=== PATIENT | male | born 1985 | race Caucasian/White ===

== ENCOUNTER → 2020-03-25 11:15 | Outpatient (BNVA) | payer OTHER, SELFPAY | PROVIDERS: Visit Provider Nurse Practitioner Family | DX: R31.9 Hematuria, unspecified (principal); Z72.51 High risk heterosexual behavior; R35.0 Frequency of micturition; Z11.3 Encounter for screening for infections with a predominantly sexual mode of transmission; L29.3 Anogenital pruritus, unspecified | CPT/HCPCS: 80053; 81000; 87491; 87591; 87661 ==

== ENCOUNTER → 2020-04-06 09:37 | Outpatient (BNVA) | payer OTHER, SELFPAY | PROVIDERS: Visit Provider Nurse Practitioner Family | DX: A64 Unspecified sexually transmitted disease (principal); Z72.51 High risk heterosexual behavior; Z20.2 Contact with and (suspected) exposure to infections with a predominantly sexual mode of transmission | CPT/HCPCS: 80074; 87491; 87806 ==

== ENCOUNTER → 2020-04-14 16:41 | Outpatient (BNVA) | payer OTHER, SELFPAY | PROVIDERS: Visit Provider Nurse Practitioner Family | DX: A74.9 Chlamydial infection, unspecified (principal) | CPT/HCPCS: 87491 ==

== ENCOUNTER → 2020-05-13 14:25 | Outpatient (BNVA) | payer OTHER, SELFPAY | PROVIDERS: Visit Provider Nurse Practitioner Family | DX: A64 Unspecified sexually transmitted disease (principal); Z20.2 Contact with and (suspected) exposure to infections with a predominantly sexual mode of transmission | CPT/HCPCS: 87491; 87591 ==

== ENCOUNTER 2020-05-25 08:23 | Emergency (ER) | payer OTHER, SELFPAY ==
[2020-05-25 08:37] VITALS: BP 147/80; PULSE 94; RESP 16; TEMP 36.8; O2SAT 100; BMI 25.0
[2020-05-25 08:43] VITALS: BP 147/80; PULSE 89; RESP 16; TEMP 36.9; O2SAT 100
[2020-05-25 08:50] LABS: Add Urine Microscopic? NO
[2020-05-25 08:53] LABS: Bilirubin Urine Neg (Negative); Blood Urine Neg (Negative); Glucose Urine UA Norm (Normal); Ketones Urine 1+ (Negative); Leukocyte Esterase Urine Negative (Negative); Nitrate Urine Negative (Negative); Protein Urine Neg (Negative); Specific Gravity, Urine 1.025 (1.005-1.030); Urine Appearance Clear (CLEAR); Urine Color Yellow (Yellow); Urobilinogen Urine Norm (Negative)
--- NOTE | 2020-05-25 09:02 | W.ED.MALEGU ---
HPI - Male Genitourinary General: Chief complaint: Urogenital-Male Stated complaint: KIDNEY PAIN Time Seen by Provider: 05/25/20 08:41 History of Present Illness: HPI Narrative: 35-year-old male presents to the emergency room with a complaint of flank pain bilaterally as well as dysuria urgency and frequency. He has not seen any gross hematuria. Months ago he was treated for chlamydia he initially was given Zithromax had some difficulty with that and was changed to a secondary medications he thinks it was ciprofloxacin. He took that for a week he said after that he started some getting some burning and pressure sensation around the genitals on the perineal area. Now over the last few days he started getting bilateral flank pain he is not noticed any gross hematuria he denies any history of kidney stones he has continued to have some dysuria. MD Complaint: dysuria and possible STD exposure Onset (ago): month(s) Duration: constant Associated symptoms: Deny dysuria, nausea or vomiting Review of Systems Const: Denies: fever(s), chills, body aches, change in appetite, fatigue or malaise ENMT: Denies: throat pain, ear or mastoid pain, nasal discharge or nasal congestion Card: Denies: chest pain, edema, dyspnea on exertion or orthopnea Resp: Denies: dyspnea, productive cough or non-productive cough GI: Denies: abdominal pain, nausea, vomiting, hematemesis, coffee ground emesis, diarrhea, constipation, bloating, hematochezia or melena : Denies: flank pain, dysuria, urinary frequency or urinary urgency Skin/Breast: Denies: rash or pruritus PFSH ED PFSH: Social History Smoking and tobacco status: current every day smoker cigarettes and smokeless tobacco Physical Exam Const: COMMON NORMALS: no acute distress GENERAL APPEARANCE: cooperative and comfortable ORIENTATION/CONSCIOUSNESS: Yes awake, Yes oriented to person, Yes oriented to place and Yes oriented to time HENMT: COMMON NORMALS: normocephalic, atraumatic, hearing grossly normal bilaterally, external ears normal, EAC's normal, TM's normal bilaterally, Normal nasal mucous membranes and turbinates present, moist oral mucous membranes and oropharynx normal HEAD & SCALP: normocephalic and atraumatic NOSE: Normal nasal mucous membranes and turbinates present EXTERNAL EAR: Yes external ears normal EXTERNAL AUDITORY CANAL: EAC's normal TYMPANIC MEMBRANE: TM's normal bilaterally Eye: COMMON NORMALS: Equal, round and reactive pupils present, EOMs intact bilaterally, conjunctivae normal and no scleral icterus CONJUNCTIVA: Yes conjunctivae normal PUPIL: Yes Equal, round and reactive pupils present Neck/C-Spine: COMMON NORMALS: full ROM, no lymphadenopathy, supple and no JVD Lymph: LYMPHATIC: no lymphadenopathy noted and no lymphedema noted Resp: COMMON NORMALS: normal respiratory effort, No retractions, No use of accessory muscles and clear to auscultation bilaterally AUSCULTATION: clear to auscultation bilaterally Cardio: COMMON NORMALS: no JVD, regular rate, regular rhythm and No murmurs present (Cardio) RATE: regular rate RHYTHM: regular rhythm GI: COMMON NORMALS: Soft to palpation and No hepatosplenomegaly present AUSCULTATION: Yes normoactive bowel sounds PALPATION: Yes Soft to palpation, No Tenderness to palpation present (GI), No Guarding due to palpation present (GI) and Yes No hepatosplenomegaly present Extremity: COMMON NORMALS: normal to inspection, capillary refill normal, no clubbing, cyanosis or edema, no calf tenderness and no pedal edema Neuro: SENSORIUM/ORIENTATION: Yes oriented to person, Yes oriented to place and Yes oriented to time Skin: COMMON NORMALS: no rashes or lesions noted GENERAL SKIN EXAM: no rashes or lesions noted Course Vital Signs: Vital signs: Vital Signs Temperature 98.4 F 05/25/20 08:43 Pulse Rate 79 05/25/20 10:51 Respiratory Rate 18 05/25/20 10:51 Blood Pressure 111/58 05/25/20 10:51 Pulse Oximetry 98 05/25/20 10:51 MDM - Male MDM Narrative: Medical decision making narrative: GC and Chlamydia are pending wet mount pending. We will go and discharge home suspect patient is more musculoskeletal back pain. Reviewed findings with him. Lab Data: Labs: Lab Results 05/25/20 05/25/20 05/25/20 Range/Units 08:34 09:03 09:03 WBC 4.6 (4.0-10.0) 10^3/ uL RBC 5.02 (4.1-5.3) 10^6/u L Hgb 16.3 (11.7-16.6) g/dL Hct 47.5 (42.0-52.0) % MCV 94.6 H (80-94) fL MCH 32.5 (28.0-34.0) pg MCHC 34.3 (30.0-36.0) g/dL RDW 12.1 (12.1-15.1) % Plt Count 260 (130-400) 10^3/c mm MPV 9.1 (7.4-10.4) fL Neut % (Auto) 53.9 % Lymph % (Auto) 33.6 % [place] % (Auto) 8.0 % Eos % (Auto) 3.4 % Baso % (Auto) 0.9 % Neut # (Auto) 2.50 (1.8-7.7) 10^3/u L Lymph # (Auto) 1.6 (0.8-4.8) 10^3/u L [place] # (Auto) 0.4 (0.2-0.9) 10^3/u L Eos # (Auto) 0.2 (0.0-0.8) 10^3/u L Baso # (Auto) 0.0 (0.0-0.1) 10^3/u L Nucleated RBC % (a uto) 0 % Nucleated RBCs # 0.0 /100WBC Sodium 142 (136-145) mmol/L Potassium 3.8 (3.5-5.1) mmol/L Chloride 105 (98-107) mmol/L Carbon Dioxide 26 (22-29) mmol/L Anion Gap 14.8 (5-19) BUN 22 H (6-20) mg/dL Creatinine 1.1 (0.7-1.2) mg/dL GFR Calculation 77.1 L (90-130) mL/min Glucose 119 H (65-115) mg/dL Calculated Osmolal ity 298 H (285-295) mOsm/k g Calcium 9.5 (8.5-10.5) mg/dL Urine Color Yellow (Yellow) Urine Appearance Clear (CLEAR) Urine pH 5.0 (5-7) Ur Specific Gravit y 1.025 (1.005-1.030) Urine Protein Neg (Negative) Urine Glucose (UA) Norm (Normal) Urine Ketones 1+ H (Negative) Urine Blood Neg (Negative) Urine Nitrate Negative (Negative) Urine Bilirubin Neg (Negative) Urine Urobilinogen Norm (Negative) mg/dL Ur Leukocyte Katrina ase Negative (Negative) Discharge Plan Discharge Patient Disposition: Home Clinical Impression: Back pain Condition: Stable Prescriptions: New diclofenac sodium 75 mg tablet,delayed release (DR/EC) 75 mg PO Q12H PRN (Reason: pain) Qty: 20 RF: 0 Discharge Orders: Discharge Order (Routine); Ordered 05/25/20 Ordered By: Noe Apple Discharge Diet: Usual diet Discharge Activity: Increase activity as tolerated Discharge Date/Time: 05/25/20 10:59 Coding Level of Care Code ED [employer] for [employer] Fwd Exam Comprehensive
--- NOTE | 2020-05-25 09:04 | CT_ITS ---
WS: [id number] CT ABDOMEN PELVIS TECHNIQUE: Noncontrast CT of the abdomen and pelvis with coronal and sagittal reformatted images. CLINICAL INFORMATION: flank pain COMPARISON: CT 4 15,012 DLP: 925.[address] scans at [facility] use at least one of these dose optimization techniques: automat ed exposure control; mA and/or kV adjustment per patient size (includes targeted exams where dose is matched to clinical indication); or iterative reconstruction. FINDINGS: Noncontrast kidneys are normal. No obstructing renal or ureteral calculi. Adrenal glands are normal. No hydronephrosis. No obstructing renal or ureteral calculi. Noncontrast liver is normal. Normal noncontrast gallbladder and spleen. Normal GE junction. Lung base s are well aerated. Normal caliber abdominal aorta. Prostate calcification. Normal sigmoid colon. No evidence of small or large bowel obstruction. Normal appendix in the right lower quadrant. No evidence of acute appendicitis. No periaortic or pelvic lym phadenopathy. No inguinal lymphadenopathy. Incidental fat-containing umbilical hernia. CT/CT kidney stone [id number] IMPRESSION: 1. No obstructing renal or ureteral calculi. No hydronephrosis. 2. Appendix is normal. No evidence of acute appendicitis. 3. No abdominal or pelvic lymphadenopathy. 4. Incidental fat-containing umbilical hernia. 5. No acute abdominal or pelvic findings. Notified Noe Apple DO at 05/25/2020 9:47 AM.
[2020-05-25 09:22] LABS: Basophils % 0.9 %; Eosinophils # 0.2 10^3/uL (0.0-0.8); Eosinophils % 3.4 %; Hematocrit 47.5 % (42.0-52.0); Hemoglobin 16.3 g/dL (11.7-16.6); Lymphocytes # 1.6 10^3/uL (0.8-4.8); Lymphocytes % 33.6 %; Mean Corpuscular HGB Conc 34.3 g/dL (30.0-36.0); Mean Corpuscular Hemoglobin 32.5 pg (28.0-34.0); Mean Corpuscular Volume 94.6 fL (80-94); Mean Platelet Volume 9.1 fL (7.4-10.4); Monocytes # 0.4 10^3/uL (0.2-0.9); Neutrophils % 53.9 %; Nucleated Red Blood Cells % 0 %; Platelet Count 260 10^3/cmm (130-400); Red Blood Count 5.02 10^6/uL (4.1-5.3); Red Cell Distribution Width 12.1 % (12.1-15.1); White Blood Count 4.6 10^3/uL (4.0-10.0)
[2020-05-25 09:39] LABS: Anion Gap 14.8 (5-19); Blood Urea Nitrogen 22 mg/dL (6-20); Calcium 9.5 mg/dL (8.5-10.5); Carbon Dioxide 26 mmol/L (22-29); Chloride 105 mmol/L (98-107); Glomerular Filtration Rate 77.1 mL/min (90-130); Glucose 119 mg/dL (65-115); Osmolality Calculated 298 mOsm/kg (285-295); Potassium 3.8 mmol/L (3.5-5.1); Sodium 142 mmol/L (136-145)
[2020-05-25 10:51] VITALS: BP 111/58; PULSE 79; RESP 18; O2SAT 98
== END 2020-05-25 10:59 | disposition home or self-care (01) ==
PROVIDERS: Emergency Provider Family Medicine
DX: M54.9 Dorsalgia, unspecified (principal); F17.220 Nicotine dependence, chewing tobacco, uncomplicated
CPT/HCPCS: 12345; 74176; 80048; 81003; 85025; 87491; 87591; 99283

== ENCOUNTER → 2020-09-21 10:05 | Outpatient (BNVA) | payer OTHER, SELFPAY | PROVIDERS: Visit Provider Registered Nurse | DX: Z20.822 Contact with and (suspected) exposure to COVID-19 (principal); J01.40 Acute pansinusitis, unspecified | CPT/HCPCS: 87635 ==

== ENCOUNTER → 2024-02-27 10:11 | Outpatient (BNVA) | payer OTHER, SELFPAY | PROVIDERS: PCP Registered Nurse; Visit Provider Registered Nurse | DX: E29.1 Testicular hypofunction (principal); Z91.89 Other specified personal risk factors, not elsewhere classified | CPT/HCPCS: 84402; 84403; 85025 ==